=== PATIENT | male | born 1960 | race Caucasian/White ===

== ENCOUNTER → 2019-11-17 | Outpatient (CLI) | payer BC | LOC: SJCVCIMAG 13:00 | PROVIDERS: ATTEND Internal Medicine Cardiovascular Disease | DX: I07.1 Rheumatic tricuspid insufficiency (principal); I11.9 Hypertensive heart disease without heart failure; I25.10 Atherosclerotic heart disease of native coronary artery without angina pectoris; R60.9 Edema, unspecified; E78.00 Pure hypercholesterolemia, unspecified; M19.90 Unspecified osteoarthritis, unspecified site; K21.9 Gastro-esophageal reflux disease without esophagitis; E78.5 Hyperlipidemia, unspecified; E66.9 Obesity, unspecified; I25.2 Old myocardial infarction; Z82.49 Family history of ischemic heart disease and other diseases of the circulatory system; Z79.82 Long term (current) use of aspirin; Z79.899 Other long term (current) drug therapy; Z87.891 Personal history of nicotine dependence ==

== ENCOUNTER → 2020-05-20 | Outpatient (CLI) | payer BC | LOC: SJCVCIMAG 07:16 | PROVIDERS: ATTEND Internal Medicine Cardiovascular Disease | DX: I25.10 Atherosclerotic heart disease of native coronary artery without angina pectoris (principal); R00.0 Tachycardia, unspecified; E78.5 Hyperlipidemia, unspecified; I10 Essential (primary) hypertension; I25.2 Old myocardial infarction; Z79.899 Other long term (current) drug therapy; Z87.891 Personal history of nicotine dependence ==

== ENCOUNTER 2020-11-03 10:23 | Observation (INO) | payer BC ==
[~2020-11-03] VITALS: Ht 185.4 cm; Wt 141.1 kg
[2020-11-03] VITALS (9 sets, daily range): BP systolic 137–169; BP diastolic 85–103
[2020-11-03] MEDS ORDERED: ASA81BEC PO (10:55)
[2020-11-03] MEDS ORDERED: LIPITOR40 MG PO (10:56)
[2020-11-03] MEDS ORDERED: CARVEDILOL3.125 MG PO (10:56)
[2020-11-03] MEDS ORDERED: RAMIPRIL5 MG PO (10:57)
--- NOTE | 2020-11-03 16:29 | CATHLAB ---
[facility] [place] [address] INVASIVE PROCEDURE REPORT Name: LURDSE PARHAM Room #: 215-P [facility] Sidney MCandida#: [id number] Admission: 11/03/20 Attend Phys: Nikko Rock MD Discharge: Date of : 56 Report #: [id number] THIS REPORT FOR: cc: Lennie Cline MD, Rebecca MD Park, Jin S. MD ~ APPROVED REPORT Study performed: 11/03/2020 11:53:01 Patient Details Patient Status: Out-Patient Room #: The patient is a 60 year-old male Event Personnel Nikko Rock Machine Shop Repair Technician, Vero Nagel RT(R)() Monitor, Haley Carrillo RTR Carlos AubSaleem Kirsten RN retrieval specialist Performed Art Access - R femoral artery* Left Heart Cath w/or w/o Coronaries [id number] [facility] Place w/wo Plasty Single CIRC 206101 Hemostasis w/ Mynx 29182 Initial Mod Sed Same Phys/QHP Gr5y 797414 33494 Mod Sed Same Phys/QHP Ea 646805 Indication Dyspnea, Unstable angina , Chest pain Risk Factors HypercholesterolemiaPhysical Activity, Coronary Artery DiseaseHypertension Previous Procedures/Diagnoses Previous PCI, Previous FL Procedure Narrative The patient was brought electively to the Cardiac Catheterization Laboratory and was prepped and draped in a sterile manner. The Right Groin^ was infiltrated with 2% Lidocaine subcutaneous anesthesia. A PINNACLE 6FR Sheath #[id number] sheath was inserted into the RFA. Coronary angiography was performed using coronary diagnostic catheters. The right coronary system was accessed and visualized with a JR4 catheter. The left coronary system was accessed and visualized with a JL4 catheter. The left ventricle was accessed and visualized [facility] [place] [address] INVASIVE PROCEDURE REPORT Name: LURDES PARHAM Room #: 215-P [facility] IN [facility]#: [id number] Admission: 11/03/20 Attend Phys: Nikko Rock MD Discharge: Date of : 56 Report #: [id number] with a PIGTAIL catheter. The patient tolerated the procedure well and there were no complications associated with the procedure. There was no hematoma. Intraoperative Conscious Sedation Fentanyl 225 mcg Versed 1 mg Fluoro Time: 17.53 minutes Dose: DAP 48991.80 cGycm2 Contrast Type and Amount: Omnipaque 250 ml Coronary Angiography The patient's coronary anatomy is right dominant. Diagnostic Cath Left Main Left main artery is a large-caliber vessel with mild disease distally. LAD The LAD is a moderate-sized caliber vessel, traverses the anterior wall and wraps around the apex. There is a stent in the midsegment with mild to moderate restenosis, 40%. Diagonal 1 This is a small to moderate-sized caliber vessel, patent with no flow-limiting lesions. Circumflex The left circumflex artery is a moderate-sized caliber vessel with severe stenosis in the proximal segment at the bifurcation of the 1st obtuse marginal artery. There is a stent in the midsegment, patent with moderate restenosis, 50%. OM1 There is a severe occlusion involving the ostium and proximal segment, 70 to 95%. OM2 This is a moderate-sized caliber vessel, patent with no flow-limiting lesions. Right Coronary There is a moderate stenosis in the proximal/mid segment, 50%. R PDA This is a moderate-sized caliber vessel with mild disease proximally. RPLV This is a small to moderate-sized caliber vessel, with no flow-limiting lesions. Left Ventriculography The left ventricle is normal in size with normal contractility. The left ventricular ejection fraction is estimated to be >55%. Hemodynamics The aortic pressure is 159/90 mmHg with a mean of 93 mmHg. The left ventricular pressure is 156/13 mmHg with a mean of mmHg. The left ventricular end diastolic pressure is 23 mmHg. [facility] [address] [place] [address] INVASIVE PROCEDURE REPORT Name: LURDES PARHAM Luis Armando Room #: 215-P [facility] IN ..#: [id number] Admission: 11/03/20 Attend Phys: Nikko Rock MD Discharge: Date of : 56 Report #: [id number] PCI Technique Lesion Percutaneous coronary intervention was performed on the first obtuse marginal branch segment. The lesion stenosis prior to intervention was 95% with ROSIE 3 flow. A VISTA 6FR XB 3.5 #[id number] Guide Catheter was used to engage the ostium. A Luge Wire .014 x 182CM #[id number] Interventional Guidewire was used to cross the lesion. BALLOON DILATION A Balloon catheter MINI TREK RX 2.0 X 12 #[id number] was inserted and inflated up to 10.00atm for 13seconds. Additional Inflation: 10.00atm for 14seconds. Additional Inflation: 14.00atm for 10seconds. STENT DEPLOYMENT A stent RESOLUTE ALEXIS RX 2.25 X 22 #[id number] was inserted and inflated up to 12.00atm for 20seconds. Additional Inflation: 18.00atm for 15seconds. Additional Inflation: 18.00atm for 24seconds. COMMENTS There is a severe occlusion involving the bifurcation of the 1st OM artery from the proximal left circumflex segment. Initially, a luge wire was placed into the 1st OM artery. After balloon dilatation, a stent was placed into the proximal segment of the 1st OM. The proximal end of the stent was placed in the left circumflex artery. After the stent was initially deployed, the balloon was withdrawn slightly and the balloon was again inflated up to 18 sarah. Then a 2nd luge wire was placed through the initial stent strut into the left circumflex proper. A 2.5 mm balloon was placed across the strut into the mid left circumflex artery. Then a culotte technique was performed with placement of a 2.5 mm stent into the left circumflex artery. This stent was postdilated with a 2.75 mm noncompliant balloon, up to 18 sarah. Then the luge wire was rewired through the left circumflex stent strut into OM1. The ostium of OM1 was dilated with a 2.0 mm balloon. Finally, a kissing balloon technique was performed with a 2.0 mm balloon into OM1 and a 2.5 mm balloon in the left circumflex proper. Both balloons were inflated up to 10 sarah. Final injections revealed ROSIE-3 blood flow down both vessels. PCI Technique Lesion 2 Percutaneous Coronary Intervention was performed on the mid circumflex artery segment. A VISTA 6FR XB 3.5 #954412 Guide Catheter was used to engage the ostium. A Luge Wire .014 x 182CM #[id number] Interventional Guidewire was used to cross the lesion. Balloon Dilation [facility] [address] [place] [address] INVASIVE PROCEDURE REPORT Name: LURDES PARHAM Room #: 215-P [facility] IN ..#: [id number] Admission: 11/03/20 Attend Phys: Nikko Rock MD Discharge: Date of : 56 Report #: [id number] A Balloon catheter Euphora RX 2.5 x 12 #[id number] was inserted and inflated up to 6.00atm for 43seconds. Additional Inflation: 12.00atm for 15seconds. Stent Deployment A stent RESOLUTE ALEXIS RX 2.5 X 12 #[id number] was inserted and inflated up to 18.00atm for 24seconds. Post Stent Deployment Balloon Dilation A Balloon catheter Euphora NC RX 2.75 x 12 #[id number] was inserted and inflated up to 18.00atm for 24seconds. Conclusion 1. Successful insertion of drug-eluting stents into OM1 and proximal left circumflex artery using a culotte technique. Final kissing balloon technique was performed in both vessels. 2. There is a patent stent in the mid LAD with mild to moderate restenosis. 3. There is a patent stent in the mid segment of the left circumflex artery with moderate restenosis. 4. There is a moderate lesion in the proximal RCA. 5. There is normal LV systolic function. 6. Recommend dual antiplatelet therapy and aggressive risk factor management. <ELECTRONICALLY SIGNED> By: Nikko Rock MD 11/03/20 1629 28 28 Nikko Rock MD /INF
--- NOTE | 2020-11-03 17:26 | EKG ---
[address] [address] ELECTROCARDIOGRAM REPORT Name: LURDES PARHAM Room #: 215-[facility] M.R.#: [id number] Admission: 11/03/20 Attend Phys: Nikko Rock MD Discharge: Date of : 56 Report #: [id number] [facility] Test Date: 2020-11-03 Test Time: 15:42:48 Pat Name: LURDES PARHAM Department: Room: 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
--- NOTE | 2020-11-03 19:11 | NUR ---
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 PATIENT IS ALERT AND ORIENTED X4 .ON ROOM AIR BREATHING SPONTANEOUSLY.NOT IN PAIN OR ANY RESPIRATORY DISTRESS.PATIENT WAS ON BED REST FOR 3 HOURS FROM 1345H TO 1645H.POST CARDIAC CATH CARE RENDERED. VITAL SIGNS MONITORED PER PROTOCOL.
[2020-11-04 00:17] VITALS: BP 124/71
--- NOTE | 2020-11-04 03:50 | NUR ---
ASSESSMENTS CHARTED, MEDS CHARTED GIVEN. RESTING IN BED DURING SHIFT. HAD BEEN TO [employer] DURING DAY SHIFT, RECEIVED TWO STENTS. RIGHT GROIN ACCESS SITE IS CLEAN, DRY INTACT. DENIED PAIN. OFF BEDREST PRIOR TO SHIFT STARTING. PLAN OF CARE TO GO HOME THIS MORNING.
[2020-11-04 04:21] VITALS: BP 149/90
[2020-11-04 04:56] LABS: HEMATOCRIT 42.6 % (42.0-52.0); HEMOGLOBIN 14.6 gm/dL (14.0-18.0); MCH 30.1 pg (26.0-34.0); MCHC 34.2 g/dL (28.0-37.0); MCV 88.1 fL (80.0-100.0); RBC 4.84 mil/uL (4.50-6.00); RDW 14.7 % (10.5-14.5); WBC 7.2 thou/uL (4.0-11.0)
[2020-11-04 05:03] LABS: ALBUMIN 3.2 g/dL (3.4-5.0); CALCIUM 8.3 mg/dL (8.5-10.1); CREATININE 1.1 mg/dL (0.7-1.3); POTASSIUM 4.3 mmol/L (3.5-5.1); TOTAL BILIRUBIN 0.9 mg/dL (0.2-1.0); TOTAL PROTEIN 6.8 g/dL (6.4-8.2)
[2020-11-04 07:52] VITALS: BP 153/88
[2020-11-04] MEDS ORDERED: EFFIENT10 MG PO ×2 (08:14→08:31)
[2020-11-04 10:21] VITALS: BP 153/88
--- NOTE | 2020-11-04 11:09 | NUR ---
PATIENT WAS RECIEVED CONSCIOUS AND ORIENTED X4.ON ROOM AIR BREATHING SPONTANEOUSLY.WITH POST CATH SITE AT RIGHT FEMORAL AREA INTACT, NO HEMATOMA OR ANY COMPLICATIONS NOTED FROM THE SITE.NO NEW CONCERNS.NOT IN PAIN OR ANY DISTRESS.FACILIATED DISCHARGE, DISCHARGE PACKET GIVEN AND EVERYTHING WAS EXPLAINED TO THE PATIENT.INSCTRUCTED PATIENT HE CAN REMOVE THE RIGHT FEMORAL DRESSING ON HIS FIRST SHOWER.DISCHARGED PATIENT HOME ACCOMPANIED BY HIS ON STABLE CONDITION.
== END 2020-11-04 11:17 | disposition home or self-care (01) ==
LOC: CATH 10:23 → TBA 12:45 → CATH 13:31 → 2N 15:29
PROVIDERS: ADMIT Internal Medicine Cardiovascular Disease; ATTEND Internal Medicine Cardiovascular Disease
DX: I25.110 Atherosclerotic heart disease of native coronary artery with unstable angina pectoris (principal); I10 Essential (primary) hypertension; E78.5 Hyperlipidemia, unspecified; K21.9 Gastro-esophageal reflux disease without esophagitis; G47.30 Sleep apnea, unspecified; Z79.82 Long term (current) use of aspirin; Z79.899 Other long term (current) drug therapy

== ENCOUNTER → 2021-05-30 | Outpatient (CLI) | payer BC ==
[~2021-05-30] MED LIST: ASA81BEC PO; CARVEDILOL3.125 MG PO; EFFIENT10 MG PO; LIPITOR40 MG PO; OMEPRAZOLE 20 M20 M1 PO; RAMIPRIL5 MG PO
== END | disposition home or self-care (01) ==
LOC: SJCVCIMAG 09:52
PROVIDERS: ATTEND Internal Medicine Cardiovascular Disease
DX: I25.9 Chronic ischemic heart disease, unspecified (principal); R00.0 Tachycardia, unspecified; R07.9 Chest pain, unspecified; I25.10 Atherosclerotic heart disease of native coronary artery without angina pectoris; E78.5 Hyperlipidemia, unspecified; I10 Essential (primary) hypertension; Z87.891 Personal history of nicotine dependence; Z79.82 Long term (current) use of aspirin; Z79.899 Other long term (current) drug therapy

== ENCOUNTER 2021-06-01 07:56 | Observation (INO) | payer BC ==
[~2021-06-01] VITALS: Ht 188 cm; Wt 135.2 kg
[~2021-06-01 07:56] MED LIST changes: -OMEPRAZOLE 20 M20 M1 PO
[2021-06-01] MEDS ORDERED: OMEPRAZOLE 20 M20 M1 PO (08:51)
[2021-06-01 08:53] VITALS: BP 144/80
--- NOTE | 2021-06-01 14:04 | CATHLAB ---
[facility] [address] [place] [address] INVASIVE PROCEDURE REPORT Name: LURDES PARHAM Room #: REG ALBERTO PinedaLazarusStephenLazarus#: [id number] Admission: 06/01/21 Attend Phys: Nikko Rock MD Discharge: Date of : 56 Report #: [id number] THIS REPORT FOR: cc: Lennie Cline MD, Rebecca MD Park,Nikko Benitez MD ~ APPROVED REPORT Study performed: 06/01/2021 09:21:17 Patient Details Patient Status: Out-Patient Room #: The patient is a 60 year-old male Event Personnel Nikko Rock Inside Technical Sales Representative, Yolette Davis RN RN, Nya Bello RTR Carlos Aub, Paula Birch RTR Monitor Procedures Performed Art Access - R femoral artery* Left Heart Cath w/or w/o Coronaries [id number] [facility] Place w/wo Plasty Addl BR OM 1 C9601 DESADDL Atherectomy w/wo Plasty Sgl CIRC 9595346 ATHSINGLE Hemostasis w/ Mynx 01642 Initial Mod Sed Same Phys/QHP Gr5y 424442 73882 Mod Sed Same Phys/QHP Ea 678392 Indication Unstable angina , Positive stress test, Chest pain Risk Factors Obesity, HypercholesterolemiaPhysical Activity, Coronary Artery DiseaseHypertension Previous Procedures/Diagnoses Previous PCI, Previous FL Procedure Narrative The patient was brought urgently to the Cardiac Catheterization Laboratory and was prepped and draped in a sterile manner. The Right Groin^ was infiltrated with 1% Lidocaine subcutaneous anesthesia. A PINNACLE 4FR Sheath #[id number] sheath was inserted into the RFA^. Coronary angiography was performed using coronary diagnostic catheters. The right coronary system was accessed and visualized with a JR4 catheter. The left coronary system was accessed and visualized with a JL4 catheter. The left ventricle was accessed and visualized [facility] [email or web address] [address] INVASIVE PROCEDURE REPORT Name: DIONELURDES Luis Armando Room #: REG [facility]#: [id number] Admission: 06/01/21 Attend Phys: Nikko Rock MD Discharge: Date of : 56 Report #: [id number] with a PIGTAIL catheter. Left ventricular/Aortic Valve gradient assessed via catheter pullback. Closure device was deployed with a Fr MYNXGRIP 6/7F #[id number]. The patient tolerated the procedure well and there were no complications associated with the procedure. There was no hematoma. The Coronary Laser Catheter was used and 8 passes were made at 80x80. Intraoperative Conscious Sedation Sedation start time: 9:38 Case end Time: 11:09 Fentanyl 100 mcg Versed 4 mg Fluoro Time: 14.42 minutes Dose: DAP 22815.10 cGycm2 3160 mGy Contrast Type and Amount: Omnipaque 230 ml Coronary Angiography The patient's coronary anatomy is right dominant. Diagnostic Cath Left Main The left main artery is a large-caliber vessel, patent with no flow-limiting lesions. LAD The LAD is a moderate-sized caliber vessel, traverses the anterior wall and wraps around the apex. There is a stent in the midsegment, with moderate restenosis, 40%. Diagonal 1 This is a small to moderate-sized caliber vessel, patent with no flow-limiting lesions. Circumflex There are bifurcating stents in the proximal left circumflex and ostial OM1. There is a severe obstruction at this bifurcation, 95%. There is a stent in the mid to distal segment of the left circumflex with moderate restenosis, 50%. OM1 Severe occlusion of the ostial/proximal stent, greater than 95%. OM2 There is a moderate-sized caliber vessel, patent with no flow-limiting lesions. Right Coronary The RCA is a dominant vessel, with a moderate stenosis in the proximal segment, 50 to 60%. R PDA There is a moderate-sized caliber vessel with a moderate ostial stenosis, 40%. RPLV There is a patent vessel, with no flow-limiting lesions. Left Ventriculography Left Ventriculography was not performed. Ejection Fraction was >55% based off patient's Nuclear Cardiac Stress Test. An LVEDP was checked and there is no gradient across the outflow tract. [facility] [address] [place] [address] INVASIVE PROCEDURE REPORT Name: LURDES PARHAM Luis Armando Room #: REG MINOR Oliveira#: [id number] Admission: 06/01/21 Attend Phys: Nikko Rock MD Discharge: Date of : 56 Report #: [id number] Hemodynamics The aortic pressure is 130/84 mmHg with a mean of 103 mmHg. The left ventricular pressure is 122/8 mmHg with a mean of mmHg. The left ventricular end diastolic pressure is 13 mmHg. Pullback from the left ventricle to the aorta revealed no gradient across the aortic valve. PCI Technique Lesion Anticoagulation was achieved with Angiomax. Percutaneous coronary intervention was performed on the first obtuse marginal branch segment. The lesion stenosis prior to intervention was 99% with ROSIE 3 flow. A VISTA 6FR XB 3.5 #352127 Guide Catheter was used to engage the CIRC ostium. A Luge Wire .014 x 182CM #699044 Interventional Guidewire was used to cross the lesion. BALLOON DILATION A Balloon catheter Euphora NC RX 2.5 x 12 #[id number] was inserted and inflated up to 18.00atm for 20seconds. The Trek 2.5 x12 was inserted and inflated to 8atm for 25 seconds at the same time as the Circumflex. STENT DEPLOYMENT A stent RESOLUTE ALEXIS RX 2.75 X15 #[id number] was inserted and inflated up to 12.00atm for 17seconds. POST STENT DEPLOYMENT BALLOON DILATION A Balloon catheter Euphora NC RX 2.75 x 8 #[id number] was inserted and inflated up to 12.00atm for 10seconds. Additional Inflation: 16.00atm for 11seconds. Additional Inflation: 16.00atm for 12seconds. Additional Inflations: 18atm for 11 seconds. Final angiography reveals 0 % stenosis with ROSIE 3 flow. COMMENTS Prior to any balloon dilatation, laser atherectomy was performed at 80x80 with 5 passes at the ostial OM1 restenotic lesion. The final balloon dilatation involved kissing balloon technique with a two 2.5 mm semicompliant balloons, across OM1 and proximal left circumflex. Both balloons were simultaneously inflated up to 8 sarah. PCI Technique Lesion 2 Percutaneous Coronary Intervention was performed on the proximal circumflex artery segment. A VISTA 6FR XB 3.5 #316667 Guide Catheter [address] [address] INVASIVE PROCEDURE REPORT Name: LURDES PARHAM Room #: REG [facility]#: [id number] Admission: 06/01/21 Attend Phys: Nikko Rock MD Discharge: Date of : 56 Report #: [id number] was used to engage the CIRC ostium. A Luge Wire .014 x 182CM #320515 Interventional Guidewire was used to cross the lesion. Balloon Dilation A Balloon catheter TREK RX 2.5 X 12 #[id number] was inserted and inflated up to 16.00atm for 11seconds. Additional Inflation: 8atm for 26seconds. Final angiography reveals 5 % stenosis with ROSIE 3 flow. Comments A stent was placed in the proximal circumflex into OM1. Through the strut, a second wire was placed into the distal circumflex. There was migration of plaque/scar tissue from OM1 and this area underwent laser atherectomy at 80 x 80 for 3 passes. Final kissing balloon technique was used. Conclusion 1. PCI involving laser atherectomy and stent placement in the OM1 ostial/proximal restenotic lesion. 2. PCI involving laser atherectomy and balloon dilatation of the proximal circumflex stent. 3. Final kissing balloon dilatation was performed. 4. There are patent stents with moderate stenosis in the mid LAD and mid/distal left circumflex artery. 5. There is a borderline RCA stenosis. 6. Recommend dual antiplatelet therapy and aggressive risk factor management. <ELECTRONICALLY SIGNED> By: Nikko Rock MD 06/01/211402 02 02 Nikko Rock MD /INF
[2021-06-01 20:47] VITALS: BP 120/81
[2021-06-02 03:09] LABS: HEMATOCRIT 44.2 % (42.0-52.0); HEMOGLOBIN 15.1 gm/dL (14.0-18.0); MCH 29.9 pg (26.0-34.0); MCHC 34.2 g/dL (28.0-37.0); MCV 87.6 fL (80.0-100.0); RBC 5.04 mil/uL (4.50-6.00); RDW 14.4 % (10.5-14.5); WBC 6.4 thou/uL (4.0-11.0)
[2021-06-02 03:25] VITALS: BP 127/65
[2021-06-02 04:00] LABS: ALBUMIN 3.2 g/dL (3.4-5.0); CALCIUM 8.6 mg/dL (8.5-10.1); TOTAL BILIRUBIN 0.8 mg/dL (0.2-1.0); TOTAL PROTEIN 7.2 g/dL (6.4-8.2)
--- NOTE | 2021-06-02 04:49 | NUR ---
RECEIVED PATIENT AT 1900H.PATIENT IS ALERT AND ORIENTED X4.ON ROOM AIR BREATHING SPONTANEOUSLY.NOT IN PAIN OR DISTRESS.ADMISSION HISTORY AND ASSESSMENT DONE.ALL NEEDS ATTENDED.TO CONTINOUSLY MONITOR.
--- NOTE | 2021-06-02 07:39 | EKG ---
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 : 1960 Requested By: Nikko Rock Order Number: [id number] : Pepe Hurst Measurements Intervals [place] Rate: 62 P: 23 MI: 175 QRS: 33 QRSD: 107 T: 84 QT: 409 QTc: 416 Interpretive Statements Sinus rhythm Borderline low voltage, extremity leads Compared to ECG 11/03/2020 15:42:48 Poor R-wave progression no longer present Electronically Signed On 06-02-2021 7:38:50 LIFE ENRICHMENT MANAGER by Pepe Hurst [email or web address] <ELECTRONICALLY SIGNED> By: Pepe Hurst MD, [facility] 06/02/21 0738 0834 3 Pepe Hurst MD, FACC /EPI
--- NOTE | 2021-06-02 07:44 | EKG ---
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 : 1960 Requested By: Nikko Rock Order Number: [id number] : Pepe Hurst Measurements Intervals [place] Rate: 64 P: 33 NC: 176 QRS: 30 QRSD: 108 T: 86 QT: 408 QTc: 421 Interpretive Statements Sinus rhythm Low voltage, extremity leads Minimal ST elevation, inferior leads Compared to ECG 06/01/2021 08:34:38 ST (T wave) deviation now present Electronically Signed On 06-02-2021 7:44:25 SLOT AMBASSADOR by Pepe Hurst [email or web address] <ELECTRONICALLY SIGNED> By: Pepe Hurst MD, [facility] 06/02/21 0744 1139 1139 Pepe Hurst MD, FACC /EPI
--- NOTE | 2021-06-02 07:47 | EKG ---
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
[2021-06-02 07:59] VITALS: BP 139/85
--- NOTE | 2021-06-02 10:05 | NUR ---
FULL CODE. A/O X 4. ROOM AIR. AD KENROY. SR ON TELE. CONT OF B/B. RIGHT GRION DRESSING D/C/I. RIGHT AC IV. HE IS TO D/C TODAY HOME WITH NO NEEDS. NO PAIN NOTED.
[2021-06-02 10:07] VITALS: BP 139/85
== END 2021-06-02 10:23 | disposition home or self-care (01) ==
LOC: CATH 07:56 → 2N 18:44
PROVIDERS: ADMIT Internal Medicine Cardiovascular Disease; ATTEND Internal Medicine Cardiovascular Disease
DX: I25.10 Atherosclerotic heart disease of native coronary artery without angina pectoris (principal); I25.110 Atherosclerotic heart disease of native coronary artery with unstable angina pectoris; Z20.822 Contact with and (suspected) exposure to COVID-19; I10 Essential (primary) hypertension; E78.5 Hyperlipidemia, unspecified; K21.9 Gastro-esophageal reflux disease without esophagitis; G47.33 Obstructive sleep apnea (adult) (pediatric); M19.90 Unspecified osteoarthritis, unspecified site; Z79.82 Long term (current) use of aspirin; Z79.899 Other long term (current) drug therapy